=== PATIENT | male | born 1985 | race Caucasian/White ===

== ENCOUNTER 2024-02-06 17:10 | Emergency (ER) | payer MEDICAID ==
[~2024-02-06] VITALS: Ht 172.7 cm; Wt 91.0 kg
[2024-02-06 17:22] VITALS: TEMP 98.7; O2SAT 98
[2024-02-06 17:56] LABS: BASOPHILS % 0.4 % (0.0-2.0); EOSINOPHILS % 1.1 % (0.0-5.0); HEMATOCRIT. 32.5 % (42.0-52.0); HEMOGLOBIN. 11.7 g/dL (14.0-18.0); LYMPHOCYTES % 48.7 % (20.0-50.0); MEAN CORPUSCULAR HEMOGLOBIN 42.6 pg (28.0-32.0); MEAN CORPUSCULAR HGB CONC 36.2 g/dL (31.0-37.0); MEAN CORPUSCULAR VOLUME 117.9 fL (80.0-94.0); MEAN PLATELET VOLUME 8.6 fl (7.4-10.4); MONOCYTES % 2.1 % (2.0-8.0); NEUTROPHILS % 47.7 % (40.0-76.0); PLATELET 184 x1000/uL (130-400); RED BLOOD CELL COUNT 2.75 mill/uL (4.7-6.1); RED CELL DISTRIBUTION WIDTH 19.3 % (11.6-14.6); WHITE BLOOD COUNT 4.8 x1000/uL (4.5-11.0)
[2024-02-06 17:57] LABS: ADD RBC MORPHOLOGY YES; DIFFERENTIAL COMMENT 1
[2024-02-06 18:15] LABS: ANISOCYTOSIS 1+; PLATELET ESTIMATE NORMAL
[2024-02-06 18:20] LABS: ALANINE AMINOTRANSFERASE 48 IU/L (10-49); ALBUMIN 4.6 g/dL (3.2-4.8); ASPARTATE AMINOTRANSFERASE 37 IU/L (<34); BILIRUBIN TOTAL 1.4 mg/dL (0.1-1.0); CALCIUM 8.7 mg/dL (8.7-10.4); CARBON DIOXIDE 24 mEq/L (21-32); CHLORIDE 108 mEq/L (98-107); GLUCOSE 129 mg/dL (70-105); POTASSIUM 3.8 mEq/L (3.5-5.1); PROTEIN TOTAL 7.6 g/dL (6.0-8.3); SODIUM 139 mEq/L (136-145); UREA NITROGEN BLOOD 10 mg/dL (9-23)
[2024-02-06] MEDS: ACETAMINOPHEN 325MG TABLET PO ONE (21:15)
[2024-02-06] MEDS: ONDANSETRON 4MG ODT PO ONE (21:15)
[2024-02-06] MEDS: IBUPROFEN 800MG TABLET PO ONE (21:15)
[2024-02-06] MEDS: ACETAMINOPHEN 325MG TABLET PO NR (22:58)
[2024-02-06] MEDS: IBUPROFEN 800MG TABLET PO NR (22:58)
[2024-02-07] MEDS: DIPHENOXYLATE/ATROPINE 2.5/0.025MG TABLET PO ONE (01:15)
[2024-02-07] MEDS ORDERED: ONDA4TAB50 MT (02:11)
[2024-02-07] MEDS ORDERED: DIPH1TAB24 MT (02:11)
[2024-02-07] MEDS ORDERED: TOPUD MT (02:11)
[2024-02-07] MEDS ORDERED: IBUP-2029 MT (02:11)
[2024-02-07] MEDS: IOHEXOL-300 100 ML BOTTLE ONE (03:32)
[2024-02-07 04:18] VITALS: BP 128/75; PULSE 80; RESP 18
== END 2024-02-07 04:18 | disposition home or self-care (01) ==
LOC: ER 17:10
DX: R10.84 Generalized abdominal pain (principal); F19.90 Other psychoactive substance use, unspecified, uncomplicated; Z98.890 Other specified postprocedural states
CPT/HCPCS: 99285; 80053; 83690; 85025; 36415; 74178; Q0162; Q9967